=== PATIENT | female | born 1940 | race Caucasian/White ===

== ENCOUNTER 2018-06-04 04:30 | Emergency (ER) | payer OTHER ==
[~2018-06-04] VITALS: Ht 157.5 cm; Wt 61.2 kg
--- NOTE | 2018-06-04 04:35 | NUR ---
Dr. Wilson at bedside for MSE.
[2018-06-04] MEDS ORDERED: DILTIAZEM HCL 25 MG IV IV ONE ×2 (04:45→05:15)
[2018-06-04] MEDS ORDERED: IV NORMAL SALINE 1000 ML BAG IV ONE ×2 (04:45→06:40)
--- NOTE | 2018-06-04 05:04 | NUR ---
Xray at bedside.
[2018-06-04] MEDS ORDERED: ASPIRIN 81 MG TAB.CHEW PO ONE (05:15)
[2018-06-04 05:18] LABS: BASOPHILS % (AUTO) 0.6 % (0.0-2.0); EOSINOPHILS # (AUTO) 0.1 K/uL (0.0-0.7); EOSINOPHILS % (AUTO) 1.6 % (0.0-7.0); HEMATOCRIT 45.4 % (31.2-41.9); HEMOGLOBIN 15.4 g/dL (10.9-14.3); LYMPHOCYTES # (AUTO) 2.9 K/uL (20.0-40.0); LYMPHOCYTES % (AUTO) 47.5 % (20.5-51.5); MEAN CORPUSCULAR HEMOGLOBIN 29.9 uug (24.7-32.8); MEAN CORPUSCULAR HGB CONC 34 g/dL (32.3-35.6); MONOCYTES # (AUTO) 0.5 K/uL (2.0-10.0); MONOCYTES % (AUTO) 7.8 % (0.0-11.0); NEUTROPHILS # (AUTO) 2.6 K/uL (1.8-8.9); NEUTROPHILS % (AUTO) 42.5 % (38.5-71.5); PLATELET COUNT (AUTO) 182 K/uL (179-408); RED BLOOD CELL COUNT(AUTO) 5.16 MIL/uL (3.63-4.92); WHITE BLOOD COUNT (AUTO) 6.1 K/uL (3.8-11.8)
[2018-06-04 05:19] LABS: CARBON DIOXIDE 25 mmol/L (21-32); CHLORIDE 107 mmol/L (98-107); CREATININE 0.9 mg/dL (0.6-1.3); GLUCOSE 115 mg/dL (74-106); POTASSIUM 4.1 mmol/L (3.5-5.1); UREA NITROGEN, BLOOD 15 mg/dL (7-18)
--- NOTE | 2018-06-04 05:25 | NUR ---
Assisted pt to bathroom.
[2018-06-04] MEDS ORDERED: LABETALOL HCL 100 MG/20 ML VIAL IV ONE (05:30)
--- NOTE | 2018-06-04 05:30 | NUR ---
Assisted pt back to bed, no falls noted.
[2018-06-04 05:32] LABS: ALANINE AMINOTRANSFERASE 27 U/L (14-59); ALKALINE PHOSPHATASE 62 U/L (50-136); ASPARTATE AMINOTRANSFERASE 18 U/L (15-37); BILIRUBIN,DIRECT 0.1 mg/dL (0.0-0.2); BILIRUBIN,TOTAL 0.5 mg/dL (0.2-1.0); TOTAL PROTEIN, SERUM 7.5 g/dL (6.4-8.2)
--- NOTE | 2018-06-04 05:47 | NUR ---
SPOKE TO REZA DAVIDSON [facility] NURSING DEPARTMENT CHAIRPERSON. LETY ROJAS WILL CALL BACK TO SPEAK WITH DR BAILEY
--- NOTE | 2018-06-04 06:00 | NUR ---
Dr. Wilson speaking with [facility] MD Dr. Pedro.
[2018-06-04] MEDS ORDERED: HYDR25TA4 PO (06:09)
[2018-06-04] MEDS ORDERED: TRAM50TA2 PO (06:09)
--- NOTE | 2018-06-04 06:16 | NUR ---
Spoke with [facility], Accepting MD is Dr. Blevins. Pt will go to the ER, number provided for report . ETA [id number].
--- NOTE | 2018-06-04 06:25 | NUR ---
Report given to Nicole MCKEON [facility].
--- NOTE | 2018-06-04 07:17 | NUR ---
Report given to Tasia MCKEON.
--- NOTE | 2018-06-04 07:54 | NUR ---
PATIENT WAITING FOR [facility]EDGE OR [facility]GE SHORE HAND. FAMILY AT BEDSIDE. PATIENT SLEEPING
--- NOTE | 2018-06-04 08:30 | NUR ---
GIVEN REPORT TO [facility].
[2018-06-04 08:52] VITALS: BP 99/49
== END 2018-06-04 08:40 | disposition short-term general hospital (02) ==
LOC: ER 04:36
DX: I48.0 Paroxysmal atrial fibrillation (principal); R07.89 Other chest pain; I10 Essential (primary) hypertension
CPT/HCPCS: 36415; 70030-TC; 71045; 84443; 85025; 85730; 93005; A4663; J7030

== ENCOUNTER 2019-04-18 23:41 | Inpatient (IN) | payer BC, OTHER ==
[~2019-04-18] VITALS: Ht 160 cm; Wt 64.4 kg
[~2019-04-18 23:41] MED LIST: HYDR25TA4 PO; TRAM50TA2 PO
[2019-04-19] MEDS ORDERED: ASPIRIN 81 MG TAB.CHEW PO ONE
--- NOTE | 2019-04-19 00:02 | NUR ---
Pt ambulates to ER, accompanied by , with c/o intermittent nonradiating chest pain x 2 hrs. EKG done. Pt placed on alarm security or surveillance monitor, sinus bradycardia, HR 46. SA02 97% room air. Denies shortness of breath. Pt denies any nausea/vomiting/diarrhea. Labs drawn, sent to lab. Saline lock placed to left antecubital 20 gauge. Will continue to monitor.
[2019-04-19 00:05] LABS: BASOPHILS % (AUTO) 0.4 % (0.0-2.0); EOSINOPHILS # (AUTO) 0.1 K/uL (0.0-0.7); EOSINOPHILS % (AUTO) 1.6 % (0.0-7.0); HEMATOCRIT 40.2 % (31.2-41.9); HEMOGLOBIN 13.5 g/dL (10.9-14.3); LYMPHOCYTES # (AUTO) 2.9 K/uL (20.0-40.0); MEAN CORPUSCULAR HEMOGLOBIN 29.5 uug (24.7-32.8); MEAN CORPUSCULAR HGB CONC 34 g/dL (32.3-35.6); MONOCYTES # (AUTO) 0.4 K/uL (2.0-10.0); MONOCYTES % (AUTO) 7.5 % (0.0-11.0); NEUTROPHILS # (AUTO) 2.4 K/uL (1.8-8.9); NEUTROPHILS % (AUTO) 41.5 % (38.5-71.5); PLATELET COUNT (AUTO) 155 K/uL (179-408); RED BLOOD CELL COUNT(AUTO) 4.57 MIL/uL (3.63-4.92); WHITE BLOOD COUNT (AUTO) 5.9 K/uL (3.8-11.8)
[2019-04-19] MEDS ORDERED: ASPIRIN 81 MG TAB.CHEW ONE (00:07)
[2019-04-19] MEDS ORDERED: NITROGLYCERIN OINT 1 GM PACKET TP ONE ×2 (00:07)
[2019-04-19 00:17] LABS: CARBON DIOXIDE 28 mmol/L (21-32); CHLORIDE 105 mmol/L (98-107); CREATININE 0.8 mg/dL (0.6-1.3); GLUCOSE 122 mg/dL (74-106); POTASSIUM 4.2 mmol/L (3.5-5.1); UREA NITROGEN, BLOOD 19 mg/dL (7-18)
[2019-04-19] MEDS ORDERED: LISI-607 PO (00:21)
[2019-04-19] MEDS ORDERED: DABI150C PO (00:21)
[2019-04-19] MEDS ORDERED: NITR0.4T48 SL (00:21)
[2019-04-19] MEDS ORDERED: METO-356 PO (00:21)
--- NOTE | 2019-04-19 00:24 | NUR ---
Pt refuses chest x-ray. Dr. Meza at bedside.
[2019-04-19 00:31] LABS: ALANINE AMINOTRANSFERASE 22 U/L (14-59); ALKALINE PHOSPHATASE 55 U/L (50-136); ASPARTATE AMINOTRANSFERASE 15 U/L (15-37); BILIRUBIN,DIRECT 0.1 mg/dL (0.0-0.2); BILIRUBIN,TOTAL 0.4 mg/dL (0.2-1.0); TOTAL PROTEIN, SERUM 6.6 g/dL (6.4-8.2)
--- NOTE | 2019-04-19 00:31 | NUR ---
[facility] called for panel call.
--- NOTE | 2019-04-19 00:40 | NUR ---
Pt. admitted to Telemetry, under care of Dr. Prabhakar Calix. Diagnosis: Chest Pain/Bradycardia. Belongs List completed Pending admission.
--- NOTE | 2019-04-19 01:05 | NUR ---
patient arrived from ED on a gurney, ambulated unassisted to the bed. AOx4. Will begin assessment and admission
[2019-04-19 01:21] VITALS: BP 132/63
[2019-04-19] MEDS ORDERED: ACETAMINOPHEN 325 MG TABLET PO PRN (01:45)
[2019-04-19] MEDS ORDERED: ONDANSETRON 4 MG/2 ML VIAL IV PRN (01:45)
[2019-04-19] MEDS ORDERED: ZOLPIDEM 5 MG TABLET PO PRN (01:45)
[2019-04-19] MEDS ORDERED: Z GUARD REMEDY PASTE 57 GM TUBE TOP PRN (01:45)
[2019-04-19] MEDS ORDERED: NITROGLYCERIN OINT 1 GM PACKET TP SCH ×2 (01:45→06:00)
--- NOTE | 2019-04-19 01:52 | NUR ---
patient reports chest heaviness without radiation 11/30. AOx4, cooperative with care, pleasant in conversation. On monitor sinus bradycardia
[2019-04-19 03:32] VITALS: BP 128/64
[2019-04-19 04:45] VITALS: BP 97/54
--- NOTE | 2019-04-19 05:40 | NUR ---
Nitro Bid held ho SBP below 100
[2019-04-19 07:40] LABS: BASOPHILS % (AUTO) 0.3 % (0.0-2.0); EOSINOPHILS # (AUTO) 0.1 K/uL (0.0-0.7); EOSINOPHILS % (AUTO) 1.9 % (0.0-7.0); HEMATOCRIT 38.6 % (31.2-41.9); LYMPHOCYTES # (AUTO) 2.1 K/uL (20.0-40.0); LYMPHOCYTES % (AUTO) 50.3 % (20.5-51.5); MEAN CORPUSCULAR HEMOGLOBIN 29.8 uug (24.7-32.8); MEAN CORPUSCULAR HGB CONC 34 g/dL (32.3-35.6); MEAN CORPUSCULAR VOLUME 88.5 fL (75.5-95.3); MONOCYTES # (AUTO) 0.3 K/uL (2.0-10.0); NEUTROPHILS # (AUTO) 1.7 K/uL (1.8-8.9); NEUTROPHILS % (AUTO) 40.5 % (38.5-71.5); PLATELET COUNT (AUTO) 139 K/uL (179-408); RED BLOOD CELL COUNT(AUTO) 4.36 MIL/uL (3.63-4.92); WHITE BLOOD COUNT (AUTO) 4.2 K/uL (3.8-11.8)
[2019-04-19 07:50] LABS: CARBON DIOXIDE 26 mmol/L (21-32); CHLORIDE 109 mmol/L (98-107); CHOLESTEROL 183 mg/dL (<200); CREATININE 0.7 mg/dL (0.6-1.3); GLUCOSE 86 mg/dL (74-106); HDL CHOLESTEROL 45 mg/dL (40-60); POTASSIUM 4.2 mmol/L (3.5-5.1); TRIGLYCERIDES 53 MG/DL (30-150); UREA NITROGEN, BLOOD 14 mg/dL (7-18)
[2019-04-19 08:04] LABS: THYROID STIMULATING HORMONE 3.242 mIU/mL (0.358-3.740)
[2019-04-19] MEDS ORDERED: DABIGATRAN ETEXILATE MESYLATE 150 MG CAPSULE PO SCH (09:00)
[2019-04-19] MEDS ORDERED: ASPIRIN EC 81 MG TABLET.DR PO SCH (09:00)
[2019-04-19] MEDS ORDERED: [UNRECOGNIZED DRUG - OTHER] PO SCH (09:00)
[2019-04-19] MEDS ORDERED: LISINOPRIL 5 MG TABLET PO SCH (09:00)
[2019-04-19] MEDS ORDERED: METOPROLOL SUCCINATE XL 25 MG TAB.SR.24H PO SCH (09:00)
[2019-04-19 11:51] VITALS: BP 115/52
--- NOTE | 2019-04-19 12:00 | NUR ---
Patient discharged AMA ; Patient advised of risks of leaving against medical advice. patient still wanted to leave and said she has a intervention analyst that she sees and will follow up with him due to no longer experience chest pain. Patient left with via private car.
== END 2019-04-19 11:45 | disposition left against medical advice (07) | DRG 311 ==
LOC: ER 23:41 → TELE3 04-19 00:54
PROVIDERS: ADMIT Nurse Practitioner Acute Care; ATTEND Nurse Practitioner Acute Care
DX: I24.9 Acute ischemic heart disease, unspecified (principal); I10 Essential (primary) hypertension; I48.0 Paroxysmal atrial fibrillation; K21.9 Gastro-esophageal reflux disease without esophagitis; R00.1 Bradycardia, unspecified; Z79.899 Other long term (current) drug therapy; Z90.49 Acquired absence of other specified parts of digestive tract; M81.0 Age-related osteoporosis without current pathological fracture
CPT/HCPCS: 36415; 70030-TC; 83735; 84100; 84443; 85025; 85730; 93005; 93307; A4663; G0378

== ENCOUNTER 2019-12-08 20:11 | Inpatient (IN) | payer BC ==
[~2019-12-08] VITALS: Ht 157.5 cm; Wt 62.3 kg
[2019-12-08] MEDS ORDERED: ASPIRIN 325 MG TABLET ONE (20:45)
[2019-12-08] MEDS ORDERED: ASPIRIN 325 MG TABLET PO ONE (20:45)
[2019-12-08 20:53] LABS: BASOPHILS % (AUTO) 0.3 % (0.0-2.0); EOSINOPHILS # (AUTO) 0.1 K/uL (0.0-0.7); EOSINOPHILS % (AUTO) 1.6 % (0.0-7.0); HEMATOCRIT 42.5 % (31.2-41.9); LYMPHOCYTES % (AUTO) 51.7 % (20.5-51.5); MEAN CORPUSCULAR HEMOGLOBIN 29.1 uug (24.7-32.8); MEAN CORPUSCULAR HGB CONC 33 g/dL (32.3-35.6); MEAN CORPUSCULAR VOLUME 88.4 fL (75.5-95.3); MONOCYTES # (AUTO) 0.5 K/uL (2.0-10.0); MONOCYTES % (AUTO) 8.7 % (0.0-11.0); NEUTROPHILS # (AUTO) 2.2 K/uL (1.8-8.9); NEUTROPHILS % (AUTO) 37.7 % (38.5-71.5); PLATELET COUNT (AUTO) 188 K/uL (179-408); RED BLOOD CELL COUNT(AUTO) 4.81 MIL/uL (3.63-4.92); WHITE BLOOD COUNT (AUTO) 5.8 K/uL (3.8-11.8)
[2019-12-08 20:58] LABS: CREATININE 0.8 mg/dL (0.6-1.3); POTASSIUM 4.4 mmol/L (3.5-5.1)
[2019-12-08 21:10] LABS: BILIRUBIN,DIRECT 0.1 mg/dL (0.0-0.2); BILIRUBIN,TOTAL 0.2 mg/dL (0.2-1.0); TOTAL PROTEIN, SERUM 7.1 g/dL (6.4-8.2)
[2019-12-09 00:55] VITALS: BP 149/86
[2019-12-09] MEDS ORDERED: NITROGLYCERIN 0.4 MG/TAB BOTTLE SL PRN ×2 (01:15)
[2019-12-09] MEDS ORDERED: ONDANSETRON 4 MG/2 ML VIAL IV PRN ×2 (01:15)
[2019-12-09] MEDS ORDERED: MORPHINE SULFATE 2 MG/1 ML DISP.SYRIN IV PRN ×2 (01:15)
[2019-12-09] MEDS ORDERED: ACETAMINOPHEN 325 MG TABLET PO PRN (01:15)
[2019-12-09] MEDS ORDERED: HYDROCODONE/APAP 5-325MG TABLET PO PRN (01:15)
[2019-12-09] MEDS ORDERED: Z GUARD REMEDY PASTE 57 GM TUBE TOP PRN (01:15)
[2019-12-09] MEDS ORDERED: ZOLPIDEM 5 MG TABLET PO PRN (01:15)
[2019-12-09] MEDS ORDERED: MAGNESIUM HYDROXIDE 30 ML LIQUID UDC PO PRN (01:15)
[2019-12-09 04:00] VITALS: BP 121/70
[2019-12-09] MEDS ORDERED: PANTOPRAZOLE SODIUM 40 MG TABLET.DR PO SCH (07:00)
[2019-12-09] MEDS ORDERED: ASPIRIN 81 MG TAB.CHEW PO SCH ×2 (09:00)
[2019-12-09] MEDS ORDERED: DABIGATRAN ETEXILATE MESYLATE 150 MG CAPSULE PO SCH ×3 (09:00)
[2019-12-09] MEDS ORDERED: METOPROLOL SUCCINATE XL 50 MG TAB.SR.24H PO SCH (09:00)
[2019-12-09 12:23] VITALS: BP 114/72
[2019-12-09] MEDS ORDERED: SIMVASTATIN 20 MG TABLET PO SCH (21:00)
[2019-12-09] MEDS ORDERED: PRADAXA 150 MG PO SCH (21:00)
[2019-12-09] MEDS ORDERED: SIMVASTATIN 10 MG TABLET PO SCH (21:00)
== END 2019-12-09 13:00 | disposition home or self-care (01) | DRG 556 ==
LOC: ER 20:15 → TELE3 23:12
PROVIDERS: ATTEND Hospitalist
DX: M62.838 Other muscle spasm (principal); K21.9 Gastro-esophageal reflux disease without esophagitis; Z86.711 Personal history of pulmonary embolism; I48.0 Paroxysmal atrial fibrillation; Z95.0 Presence of cardiac pacemaker; J43.9 Emphysema, unspecified; M81.0 Age-related osteoporosis without current pathological fracture
CPT/HCPCS: 36415; 70030-TC; 71045; 85025; 85730; 93005; A4663; G0378

== ENCOUNTER 2020-11-26 09:20 | Emergency (ER) | payer BC ==
[~2020-11-26] VITALS: Ht 157.5 cm; Wt 67.1 kg
[~2020-11-26 09:20] MED LIST changes: +DABI150C PO; -HYDR25TA4 PO; +METO-357 PO; -TRAM50TA2 PO
--- NOTE | 2020-11-26 09:33 | NUR ---
Patient ambulated to ER bed 5A from triage with steady gait, NAD
[2020-11-26] MEDS ORDERED: MAGN400C PO (09:34)
--- NOTE | 2020-11-26 09:51 | NUR ---
MD@[email or web address], medical screening exam in progress
[2020-11-26] MEDS ORDERED: TDAP DIPH,PERTUSS,TET VAC/PF 0.5 ML DISP.SYRIN IM ONE ×2 (09:56→10:00)
--- NOTE | 2020-11-26 10:25 | NUR ---
Patient is back from radiology department, for MD to repair the left eyebrow laceration@this time
[2020-11-26] MEDS ORDERED: ACET1TAB23 PO (11:35)
--- NOTE | 2020-11-26 11:46 | NUR ---
Patient was discharge to home by MD. Oral and written discharge instructions were given to patient. Patient verbalized understanding and compliance to discharge instructions. Stressed follow-up with patient's primary doctor and ortho doctor Loaiza or return to ER if worse were also emphasized to patient. Patient left ER in stable condition and steady gait.
== END 2020-11-26 11:47 | disposition home or self-care (01) ==
LOC: ER 09:20
DX: S01.81XA Laceration without foreign body of other part of head, initial encounter (principal); S52.121A Displaced fracture of head of right radius, initial encounter for closed fracture; S80.211A Abrasion, right knee, initial encounter; W01.0XXA Fall on same level from slipping, tripping and stumbling without subsequent striking against object, initial encounter; Y93.01 Activity, walking, marching and hiking; Y92.89 Other specified places as the place of occurrence of the external cause; Y99.8 Other external cause status; I48.91 Unspecified atrial fibrillation; Z79.02 Long term (current) use of antithrombotics/antiplatelets; K21.9 Gastro-esophageal reflux disease without esophagitis; R03.0 Elevated blood-pressure reading, without diagnosis of hypertension
CPT/HCPCS: 70450; 73080; 90715; A4217; A4663

== ENCOUNTER 2022-08-24 08:27 | Emergency (ER) | payer BC ==
[~2022-08-24] VITALS: Ht 157.5 cm; Wt 68.0 kg
[~2022-08-24 08:27] MED LIST changes: +ACET1TAB23 PO; +MAGN400C PO
--- NOTE | 2022-08-24 08:40 | NUR ---
Pt brought in by in a w/c to [facility] area. Pt states she "twisted" her left knee yesterday, denies any fall or trauma. Pt to room 4B, pt able to engine designer get into gurney with minimal assistance. Pt was seen and evaluated by , x-ray ordered.
[2022-08-24] MEDS ORDERED: ACET1TAB23 PO (09:51)
--- NOTE | 2022-08-24 10:05 | NUR ---
Patient discharged to home in stable condition with . Written and verbal after care instructions given. Patient verbalizes understanding of instructions. Stressed follow up or return to ER for worsening s/s.
== END 2022-08-24 10:05 | disposition home or self-care (01) ==
LOC: ER 08:27
DX: S89.92XA Unspecified injury of left lower leg, initial encounter (principal); X50.9XXA Other and unspecified overexertion or strenuous movements or postures, initial encounter; Y92.89 Other specified places as the place of occurrence of the external cause; M19.90 Unspecified osteoarthritis, unspecified site; I49.9 Cardiac arrhythmia, unspecified; Z95.0 Presence of cardiac pacemaker; Z79.02 Long term (current) use of antithrombotics/antiplatelets
CPT/HCPCS: A4663

== ENCOUNTER 2022-10-22 22:30 | Emergency (ER) | payer BC ==
--- NOTE | 2022-10-22 22:32 | NUR ---
Patient was called to be triaged but was not present in the waiting room or outside of ER. Hospital's secruity abigail observed patient leaving ER with relative.
--- NOTE | 2022-10-22 23:00 | NUR ---
Called patient to be triaged but was not present in the waiting room or outside of ER.
--- NOTE | 2022-10-22 23:20 | NUR ---
Called patient to be triaged but was not present in the waiting room or outside of ER. PATIENT WAS NOT TRIAGED OR SEEN BY ERMD.
== END 2022-10-22 23:21 | disposition left against medical advice (07) ==
LOC: ER 22:31
DX: Z53.21 Procedure and treatment not carried out due to patient leaving prior to being seen by health care provider (principal)